=== PATIENT | female | born 1995 | race Caucasian/White ===

== ENCOUNTER 2017-04-24 11:03 | Emergency (ER) | payer SELFPAY ==
[~2017-04-24] VITALS: Ht 157.5 cm; Wt 63.5 kg
[2017-04-24 11:05] VITALS: BP 120/65
[2017-04-24] MEDS ORDERED: IBUPROFEN 600 MG TABLET PO ONE ×2 (12:37→13:00)
== END 2017-04-24 13:04 | disposition home or self-care (01) ==
LOC: ER 11:05
DX: M54.2 Cervicalgia (principal); M54.5 Low back pain; V49.49XA Driver injured in collision with other motor vehicles in traffic accident, initial encounter; Y93.89 Activity, other specified; Y92.410 Unspecified street and highway as the place of occurrence of the external cause; Y99.8 Other external cause status
CPT/HCPCS: 99283; A4606; Z7610